=== PATIENT | female | born 2000 | race Caucasian/White ===

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

== ENCOUNTER 2021-03-19 15:27 | Emergency (ER) | payer OTHER, SELFPAY ==
[2021-03-19 15:38] VITALS: BP 107/67; PULSE 85; RESP 16; TEMP 37.4; O2SAT 99
--- NOTE | 2021-03-19 15:45 | ED.EYEPROB ---
HPI - Eye Problem General Chief complaint: Eye Problems Stated complaint: Left eye pain Time Seen by Provider: 03/19/21 15:42 Source: patient, RN notes reviewed and old records reviewed Mode of arrival: ambulatory Limitations: no limitations History of Present Illness HPI Narrative: 20 year old female who presents to [facility] care with complaints of left eye redness and some episodes of crusting noted on her left eye. Patient states that she has been on Doxycycline and Medrol dose pack for sinus infection and cough since the 07 of March with only 2 doses remaining. Patient states that for the past 2 days she has awoke with left eye red and crusted with it being almost crusted shut yesterday.Patient denies any acute visual changes to her left eye, denies any acute pain to her left eye, no fevers, chills or sweats. MD chief complaint: eye redness Related Data Home Medications Medication Instructions Recorded Confirmed doxycycline hyclate 100 mg PO BID 03/19/21 03/19/21 prednisone 10 mg PO DAILY 03/19/21 03/19/21 Allergies Allergy/AdvReac Type Severity Reaction Status Date / Time No Known Allergies Allergy Verified 03/19/21 15:45 Review of Systems Review of Systems: CONSTITUTIONAL: Denies fever, chills, or sweats. EYES: Denies visual changes, positive redness, or discharge. Left eye ENT: Denies rhinorrhea, congestion, sore throat, or otalgia. CARDIOVASCULAR: Denies chest pain, palpitations, or edema. RESPIRATORY: Denies cough or dyspnea. GASTROINTESTINAL: Denies abdominal pain, nausea, vomiting, or diarrhea. GENITOURINARY: Denies dysuria or hematuria. SKIN: Denies rash or itching. MUSCULOSKELETAL: Denies back pain, joint pain, or myalgia. NEUROLOGIC: Denies headache, numbness, or weakness. PSYCHIATRIC: Denies anxiety or depression. All systems reviewed & are unremarkable except as noted in HPI and below PMFSH Past Medical History Medical History (Updated 03/19/21 @ 16:06 by Ame Salamanca NP) History of sinus problem Migraine Surgical History Surgical History (Updated 03/19/21 @ 16:02 by Ame Salamanca NP) [place] teeth extracted Family History Family History (Updated 03/19/21 @ 17:50 by Ame Salamanca NP) Other Family history non-contributory Social History Social History (Updated 03/19/21 @ 16:03 by Ame Salamanca NP) Smoking status: Never smoker Alcohol intake: current Alcohol use details: social Living arrangements: with family Gender identity (if verbalized by the patient): Female Comments At time of signature, agree with nursing past medical, surgical, social and family history. There is no relevant family history pertinent to the presenting complaint Exam Narrative: GENERAL: Well-appearing, well-nourished, and in no acute distress. HEAD: Normocephalic, atraumatic. EYES: PERRLA and EOMI.left sclera has some patchy redness and some redness of conjunctiva no drainage noted at this time visual acuity intact with left eye 20/20 right eye 20/30 no corrective lens ENT: Nares clear, no rhinorrhea or epistaxis. Mucous membranes moist. NECK: Supple. no lymphadenopathy CHEST: Clear to auscultation. No respiratory distress.SAO2 99% on room air HEART: Regular rate and rhythm. No murmur heard. Normal peripheral pulses. ABDOMEN: Soft, nontender, nondistended, normal active bowel sounds. EXTREMITIES: Normal range of motion. No edema. SKIN: Warm, dry, no rash. NEURO: No focal deficits. Alert and oriented x3. Course Vital Signs Vital signs: Vital Signs Temperature 37.4 C 03/19/21 15:38 Pulse Rate 85 03/19/21 15:38 Respiratory Rate 16 03/19/21 15:38 Blood Pressure 107/67 03/19/21 15:38 Pulse Oximetry 99 03/19/21 15:38 Temperature 37.4 C 03/19/21 15:38 Pulse Rate 85 03/19/21 15:38 Respiratory Rate 16 03/19/21 15:38 Blood Pressure 107/67 03/19/21 15:38 Pulse Oximetry 99 03/19/21 15:38 MDM - Eye Problem Differential Diagnosi
== END 2021-03-19 16:11 | disposition home or self-care (01) ==
PROVIDERS: Emergency Provider Registered Nurse; PCP Family Medicine
DX: H10.9 Unspecified conjunctivitis (principal)
CPT/HCPCS: 99213; G0463

== ENCOUNTER 2021-08-05 10:17 | Emergency (ER) | payer OTHER, SELFPAY ==
[2021-08-05 10:32] VITALS: BP 114/67; PULSE 74; RESP 16; TEMP 36.2; O2SAT 100
--- NOTE | 2021-08-05 11:02 | ED.EYEPROB ---
HPI - Eye Problem General Chief complaint: Eye Problems Stated complaint: rt eye irritation and swellen Time Seen by Provider: 08/05/21 10:53 Source: patient and RN notes reviewed Mode of arrival: ambulatory Limitations: no limitations History of Present Illness HPI Narrative: Patient presents today complaining of redness, pain, and swelling to the right lower eyelid since yesterday, significantly worse when she woke up this morning. She currently rates her pain 4/10 and applied warm compresses x4 yesterday. She does wear contacts normally. Denies vision changes or drainage. MD chief complaint: eye pain Related Data Allergies Allergy/AdvReac Type Severity Reaction Status Date / Time No Known Allergies Allergy Verified 08/05/21 10:39 Review of Systems Review of Systems: CONSTITUTIONAL: Denies body aches, fever, chills, or sweats. EYES: Denies visual changes, redness, or discharge.+ Swelling, redness, and pain to the right lower eyelid ENT: Denies rhinorrhea, congestion, sore throat, or otalgia. CARDIOVASCULAR: Denies chest pain, palpitations, or edema. RESPIRATORY: Denies cough or dyspnea. GASTROINTESTINAL: Denies abdominal pain, nausea, vomiting, or diarrhea. GENITOURINARY: Denies dysuria or hematuria. SKIN: Denies rash, itching, or wounds. MUSCULOSKELETAL: Denies back pain, joint pain, or myalgia. NEUROLOGIC: Denies headache, numbness, tingling, or weakness. PSYCH: Denies depression or anxiety. [facility] Past Medical History Medical History History of sinus problem Migraine Surgical History Surgical History [place] teeth extracted Family History Family History Other Family history non-contributory Social History Social History Smoking status: Never smoker Alcohol intake: current Alcohol use details: social Gender identity (if verbalized by the patient): Female Comments At time of signature, I have reviewed and agree with nursing past medical, surgical, social and family history unless otherwise noted. Please see nursing chart for further information. There is no relevant family history pertinent to the presenting complaint Exam Narrative: GENERAL: Well-appearing, well-nourished, and in no acute distress. HEAD: Normocephalic, atraumatic. EYES: EOMI. PERRL. No redness or drainage. Conjunctivae normal. Small area of localized swelling and scant edema to the medial lash line of the right lower eyelid, consistent with developing stye. Mildly tender to palpation. ENT: Mucous membranes pink and moist. NECK: Normal AROM. CHEST: No respiratory distress. EXTREMITIES: Normal range of motion. No edema. SKIN: Warm, dry, no rash. Capillary refill normal. Normal skin turgor. NEURO: No focal deficits. Alert and oriented x3. Gait steady. PSYCH: Normal affect. No signs of depression or anxiety. Course Course Level of Care: Express Care Visit Vital Signs Vital signs: Vital Signs Temperature 97.2 F L 08/05/21 10:32 Pulse Rate 74 08/05/21 10:32 Respiratory Rate 16 08/05/21 10:32 Blood Pressure 114/67 08/05/21 10:32 Pulse Oximetry 100 08/05/21 10:32 Temperature 97.2 F L 08/05/21 10:32 Pulse Rate 74 08/05/21 10:32 Respiratory Rate 16 08/05/21 10:32 Blood Pressure 114/67 08/05/21 10:32 Pulse Oximetry 100 08/05/21 10:32 Reviewed MDM - Eye Problem Differential Diagnosis Differential diagnosis: Likely conjunctivitis, periorbital cellulitis and other (Stye) Critical Care Time Critical Care Time Critical Care Time: No Discharge Plan Discharge Clinical Impression: External hordeolum Qualifiers: Laterality: right Eyelid: lower Qualified Code(s): H00.012 - Hordeolum externum right lower eyelid Patient Disposition: Home,
== END 2021-08-05 11:08 | disposition home or self-care (01) ==
PROVIDERS: Emergency Provider Nurse Practitioner; PCP Family Medicine
DX: H00.012 Hordeolum externum right lower eyelid (principal)
CPT/HCPCS: 99213; G0463

== ENCOUNTER 2021-10-12 15:13 | Emergency (ER) | payer OTHER, SELFPAY ==
[2021-10-12 15:20] VITALS: BP 118/67; PULSE 60; RESP 16; TEMP 36.6; O2SAT 100
--- NOTE | 2021-10-12 15:54 | ED.URI ---
HPI - URI/Sore Throat General Chief Complaint: Upper Respiratory Infection Stated Complaint: Cough,Congestion Time Seen by Provider: 10/12/21 15:30 Source: patient Mode of arrival: ambulatory Limitations: no limitations History of Present Illness HPI Narrative: 21-year-old female presents with complaint of cough for 5 days. Reports she had nasal congestion for 2 days but that has resolved. Reports a lot of postnasal drainage, tickling in throat. Yesterday she began feeling short of breath with exertion. Afebrile. No concern for COVID. Denies chest pain. No respiratory distress, able to speak in full sentences. All systems reviewed and negative except as noted above. Related Data Allergies Allergy/AdvReac Type Severity Reaction Status Date / Time No Known Allergies Allergy Verified 10/12/21 15:16 Review of Systems Review of Systems: CONSTITUTIONAL: Denies fever, chills, or sweats. EYES: Denies visual changes, redness, or discharge. ENT: Denies rhinorrhea, congestion, sore throat, or otalgia. CARDIOVASCULAR: Denies chest pain, palpitations, or edema. RESPIRATORY: Reports cough and dyspnea with exertion. GASTROINTESTINAL: Denies abdominal pain, nausea, vomiting, or diarrhea. GENITOURINARY: Denies dysuria or hematuria. SKIN: Denies rash or itching. MUSCULOSKELETAL: Denies back pain, joint pain, or myalgia. NEUROLOGIC: Denies headache, numbness, or weakness. PSYCHIATRIC: Denies anxiety or depression. All other systems reviewed are negative, except as documented in HPI. [facility] Past Medical History Medical History History of sinus problem Migraine Surgical History Surgical History [place] teeth extracted Family History Family History Other Family history non-contributory Social History Social History Smoking status: Never smoker Alcohol intake: current Alcohol use details: social Gender identity (if verbalized by the patient): Female Comments At time of signature, agree with nursing past medical, surgical, social and family history. There is no relevant family history pertinent to the presenting complaint. Exam Narrative: GENERAL: This is a well-nourished, well-developed patient, in no apparent distress. HEAD: normocephalic, atraumatic. EYES: PERRL. Sclera clear/white. Vision is grossly intact. EARS: External ears normal, auditory canals clear and without drainage, TMs normal without perforation. Hearing grossly intact. NOSE: External nose normal with no obvious nasal discharge, nares without redness, no rhinorrhea. THROAT: Mucous membranes moist, posterior pharynx clear. NECK: Neck supple, non-tender without lymphadenopathy, masses or thyromegaly. CARDIOVASCULAR: Regular rate and rhythm without murmurs, gallops, or rubs. RESPIRATORY: Decreased lung sounds to lower lobes. Breath sounds equal bilaterally. No wheezes, rales, or rhonchi. SKIN: warm, Dry, intact with no suspicious lesions or rash, good texture and turgor. NEURO: awake, alert, and oriented to person, place and time. There were no obvious focal neurologic abnormalities. EXTREMITIES: Normal range of motion to all extremities. Course Course Level of Care: Express Care Visit Vital Signs Vital signs: Vital Signs Temperature 36.6 C 10/12/21 15:20 Pulse Rate 60 10/12/21 15:20 Respiratory Rate 16 10/12/21 15:20 Blood Pressure 118/67 10/12/21 15:20 Pulse Oximetry 100 10/12/21 15:20 Temperature 36.6 C 10/12/21 15:20 Pulse Rate 60 10/12/21 15:20 Respiratory Rate 16 10/12/21 15:20 Blood Pressure 118/67 10/12/21 15:20 Pulse Oximetry 100 10/12/21 15:20 Reviewed MDM - URI/Sore Throat MDM Narrative Medical decision making narrative: Patient is aware of diagnosis,
== END 2021-10-12 15:54 | disposition home or self-care (01) ==
PROVIDERS: Emergency Provider Nurse Practitioner Family; PCP Family Medicine
DX: J06.9 Acute upper respiratory infection, unspecified (principal)
CPT/HCPCS: 87804; 99213; G0463

== ENCOUNTER 2021-11-18 11:35 | Emergency (ER) | payer OTHER, SELFPAY ==
[2021-11-18 11:44] VITALS: BP 105/55; PULSE 71; RESP 18; TEMP 36.4; O2SAT 100
--- NOTE | 2021-11-18 12:00 | ED.GENADULT ---
HPI - General Adult General Stated complaint: Syncope episode and hit head Time Seen by Provider: 11/18/21 12:30 Source: patient and family Mode of arrival: ambulatory Limitations: no limitations History of Present Illness HPI narrative: 21-year-old female presents with concern for evaluation after syncopal episode and head injury. She reports yesterday while standing in the shade her vision went black and she passed out. Reports she hit the left side of her head on concrete. She reports she was evaluated by EMS on the scene and was told by them to follow-up with her doctor. She reports she has had mild occasional achiness to the left side of the head where she concrete. She denies any open skin, bleeding. She denies headache or vomiting. She reports history of 2 syncopal episodes when she was in high school. Reports both times she was evaluated by her doctor. She denies any current or history of chest pain, shortness of breath. MD complaint: Head injury Related Data Home Medications Medication Instructions Recorded Confirmed No Home Medications 11/18/21 11/18/21 Allergies Allergy/AdvReac Type Severity Reaction Status Date / Time No Known Allergies Allergy Verified 11/18/21 12:36 Review of Systems Review of Systems: CONSTITUTIONAL: Denies malaise, chills, sweats, or fever. EYES: Denies visual changes, redness, or discharge. ENT: Denies rhinorrhea, congestion, sinus pain, otalgia or sore throat. CARDIOVASCULAR: Denies chest pain, palpitations, or edema. RESPIRATORY: Denies cough or dyspnea. GASTROINTESTINAL: Denies abdominal pain, nausea, vomiting SKIN: Denies abrasions, lacerations MUSCULOSKELETAL: Denies musculoskeletal pain NEUROLOGIC: Denies numbness, weakness, or headache. All systems reviewed & are unremarkable except as noted in HPI and below PMFSH Past Medical History Medical History History of sinus problem Migraine Surgical History Surgical History [place] teeth extracted Family History Family History Other Family history non-contributory Social History Social History Smoking status: Never smoker Alcohol intake: current Alcohol use details: social Gender identity (if verbalized by the patient): Female Comments At time of signature, agree with nursing past medical, surgical, social and family history. There is no relevant family history pertinent to the presenting complaint Exam Narrative: GENERAL: Well-appearing, well-nourished, and in no acute distress. HEAD: Normocephalic, atraumatic. EYES: PERRLA, sclera clear, and EOMI. No nystagmus. ENT: Nares clear, turbinates pink, no rhinorrhea or epistaxis. Mucous membranes moist. TM pearly talbert with sharp light reflex bilaterally; no tragal tenderness. NECK: Supple. No lymphadenopathy. CHEST: No respiratory distress. Clear to auscultation. No bony deformities, no asymmetry. Speaks in full sentences. HEART: Regular rate and rhythm. No murmur heard. Normal peripheral pulses. EXTREMITIES: Grossly normal range of motion. No edema. Grossly normal strength and sensation. SKIN: Warm, dry, no visible rash. NEURO: Alert and oriented x3. No focal deficits. Cranial nerves II through XII grossly intact PSYCH: Normal mood and affect Course Course Emergency Course: Discussed with patient and her mother limited diagnostic capability [facility]. Discussed negative exam findings. Gave patient reasons to follow-up in emergency room, advised to make an appoint with her primary care doctor. Offered EKG, patient declined. Patient is aware of diagnosis, understands and agrees to treatment plan. Anticipatory guidance given. Patient agrees to follow-up as directed and is aware of reasons to seek care at the [facility]
== END 2021-11-18 12:51 | disposition home or self-care (01) ==
PROVIDERS: Emergency Provider Nurse Practitioner; PCP Family Medicine
DX: S09.90XA Unspecified injury of head, initial encounter (principal); W19.XXXA Unspecified fall, initial encounter; R55 Syncope and collapse
CPT/HCPCS: 99213; G0463

== ENCOUNTER 2025-02-06 16:16 | Emergency (ER) | payer MEDICAID, SELFPAY ==
[2025-02-06 16:27] VITALS: BP 118/63; PULSE 86; RESP 18; TEMP 36.6; O2SAT 100
--- OUTSIDE RECORDS SUMMARY | 2025-02-06 16:31 | XMS_ITS | Clinical Summary ---
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 Gender Identity Not on file Sexual Orientation Not on file Plan of Treatment Health Maintenance Due Date Last Done Comments Hepatitis C Virus (HCV) Screening 2000 Human Papillomavirus (HPV) Immunization (3 - 2-dose series) 05/27/2010 03/04/2010, 12/30/2009, 10/28/2009 SARS-COV-2 Immunization ( season) 2024 Influenza Immunization (#1) 02/19/202501/2017, 07/17/2015, 07/14/2011, Additional history exists Respiratory Syncytial Virus (RSV) Immunization (Adult) (1 - 1-dose 75+ series) 2075 Pneumococcal Immunization Combined Aged Out 2000, 2000 No longer eligibl e based on patient's age to complete this topic Hepatitis B Immunization Completed 002, 04/08/2001, 2000 DTaP/Tdap/Td Immunization Discontinued 2011, 03/31/2006, 05/11/2002, Additional history exists TdaP Immunization Completed 12/02/2011 Meningococcal Immunization (ACWY) Completed 02/05/2017, 12/02/2011, 12/01/2001 Rotavirus Immunization Aged Out No lo nger eligible based on patient's age to complete this topic Insurance [employer] on file
--- OUTSIDE RECORDS SUMMARY | 2025-02-06 16:32 | XMS_ITS | Clinical Summary ---
Author Organization [facility] Address [address] [place] [address] Care Team Providers Care Fiber Technician Name Role Phone Sundeep Miranda MD Primary Care Provider [phone] Source Comments [facility],non-owned Affiliates and Associated Physician Practices is amultiple site organization consisting of ambulatory clinics and hospital sitesin [place], [place], [place] and [place]. This disclosure is being madepursuant to the Care Everywhere program and may not contain all information available regarding this patient. Last updated 18.[facility] Allergies No known active allergies Medications * Be aware that medications may not be up to date on this document. Alwaysverify current medications with the patient. MedroxyPROGESTERon e Acetate (DEPO-PROVERA IM) Ac tive Family History Medical History Relation Name Comments Arrhythmia Neg Hx CVA<55(male) Neg Hx CVA<65(female) Neg Hx Cardiomyopathy Neg Hx Congenital Heart defect Neg Hx Heart Surgery Neg Hx Long QT Syndrome Neg Hx NV<55(male) Neg Hx NV<65(female) Neg Hx Marfan Syndrome Neg Hx Pacemaker Neg Hx Sudd. <30 Neg Hx Social History Tobacco Use Types Packs/Day Years Used Date Smoking Tobacco: Never Alcohol Use Standard Drinks/Week Comments Not Asked 0 (1 standard drink = 0.6 oz pur e alcohol) Comments Unknown Sex and Gender Information Value Date Recorded Sex Assigned at Not on file Legal Sex Female 2:01 PM CDT Gender Identity Not on file Sexual Orientation Not on file Last Filed Vital Signs Vital Sign Reading Time Taken Comments Blood Pressure 104/62 12/19/2015 11:29 AM CDT Pulse 72 12/19/2015 11:29 AM CDT Temperature - - Respiratory Rate 16 12/19/2015 11:29 AM CDT Oxygen Saturation 99% 12/19/2015 11:29 AM CDT Inhaled Oxygen Concentration - - Weight 52.4 kg (115 lb 8.3 oz) 12/19/2015 11:29 AM CDT Height 165 cm (5' 4.96) 12/19/2015 11:29 AM CDT Body Mass Index 19.25 12/19/2015 11:29 AM CDT Plan of Treatment Health Maintenance Due Date Last Done Comments HIV SCREENING 2015 HPV VACCINE (1 - 3-dose series) 2015 CHLAMYDIA/GONORRHEA SCREENING 2016 HEPATITIS C SCREENING 07/21/2018 DTAP/TDAP/TD VACCINES (1 - Tdap) 2019 HEPATITIS B VACCINE (1 of 3 - 19+ 3-dose series) 2019 COVID-19 VACCINE (1 - 2023-2 5 season) 2024 DEPRESSION SCREENING 06/21/2024 INFLUENZA VACCINE (#1) 2025 ZOSTER VACCINE (1 of 2) 2050 HIB VACCINE Aged Out No longer eligi ble based on patient's age to complete this topic MENINGOCOCCAL (Group B) VACC INE SHARED DECISION-MAKING Aged Out No longer eligibl e based on patient's age to complete this topic MENINGOCOCCAL GROUPS A/C/Y/W VACCINE Aged Out No longer eligible b ased on patient's age to complete this topic PNEUMOCOCCAL VACCINE Aged Out No long er eligible based on patient's age to complete this topic Insurance [employer] Care Teams Fiber Technician Relationship Specialty Start Date End Date Sundeep Miranda MD PCP - General Emergency Medicine 12/13/15
[2025-02-06 16:34] LABS: EDSTREPNEGPOS1 Negative (Negative)
--- NOTE | 2025-02-06 16:58 | ED_ITS ---
HPI - URI/Sore Throat General Chief Complaint: Upper Respiratory Infection Stated Complaint: sore throat / cold like Time Seen by Provider: 02/06/25 16:45 Source: patient and RN notes reviewed Mode of arrival: ambulatory Limitations: no limitations History of Present Illness HPI Narrative: 24-year-old female presents Express Care complaining of upper respiratory symptoms for approximately 4 days. Patient reports congestion, runny nose, sore throat, dry cough, and ear fullness. Patient denies any fevers, body aches, chills, nausea, vomiting, diarrhea, chest pain, shortness of breath, or any other symptoms. Patient is 6 weeks . Patient has been taking Tylenol and using RT without relief. This is patient's 1st . Patient is not follow-up with OBGYN yet but as the scheduled appointment coming up. Related Data Home Medications ?Medication ?Instructions ?Recorded ?Confirmed ?Last Taken ?Type No Home Medications 11/18/21 11/18/21 U nknown History Allergies Allergy/AdvReac Type Severity Reaction Status Date / Time No Known Allergies Allergy Verified 02/06/25 16:29 Review of Systems Review of Systems: CONSTITUTIONAL: Denies fever, chills, body aches, or sweats. EYES: Denies visual changes, redness, or discharge. ENT: Positive for rhinorrhea, congestion, sore throat, and ear fullness. Negative for otalgia. CARDIOVASCULAR: Denies chest pain, palpitations, or edema. RESPIRATORY: Positive for cough. Negative for dyspnea. GASTROINTESTINAL: Denies abdominal pain, nausea, vomiting, or diarrhea. GENITOURINARY: Denies dysuria or hematuria. SKIN: Denies rash or itching. MUSCULOSKELETAL: Denies back pain, joint pain, or myalgia. NEUROLOGIC: Denies headache, numbness, or weakness. PSYCHIATRIC: Denies anxiety or depression. All other systems reviewed are negative, except as documented in HPI. [facility] Past Medical History Medical History Migraine History of sinus problem Surgical History Surgical History [place] teeth extracted Family History Family History Other Family history non-contributory Social History Social History Smoking status: Never smoker Alcohol intake: current Alcohol use details: social Living arrangements: with family Gender identity (if verbalized by the patient): Female Comments At the time of my signature, I reviewed and agree with the nursing past medical, surgical, social, and family history. There is no relevant family history pertinent to the patient complaint. Exam Narrative: GENERAL: This is a well-nourished, well-developed adult, in no apparent distress. They are non ill-appearing, nontoxic appearing. HEAD: normocephalic, atraumatic. EYES: Sclera clear/white. Vision is grossly intact. Conjunctiva normal bilaterally. Extraocular movements intact. EARS: External ears normal, auditory canals clear and without drainage, TMs without erythema or perforation. Hearing grossly intact. NOSE: External nose normal with no obvious nasal discharge, nasal turbinates erythematous, no rhinorrhea. THROAT: Mucous membranes moist, posterior pharynx erythematous without exudate. Uvula is midline. Postnasal drip present. NECK: Neck supple, non-tender without lymphadenopathy, masses or thyromegaly. CARDIOVASCULAR: Regular rate and rhythm without murmurs, gallops, or rubs. RESPIRATORY: Clear to auscultation. Breath sounds equal bilaterally. No wheezes, rales, or rhonchi. SKIN: warm, Dry, intact with no suspicious lesions or rash, good texture and turgor. NEURO: awake, alert, and oriented to person, place and time. There were no obvious focal neurologic abnormalities. EXTREMITIES: No joint tenderness, effusion, or edema noted. BACK: Nontender without deformity. Course Course Emergency Course: Portions of this record may have been created with voice recognition software Level of Care: Express Care Visit Vital Signs Vital signs: Vital Signs Temperature 97.9 F 02/06/25 16:27 Pulse Rate 86 02/06/25 16:27 Respiratory Rate 18 02/06/25 16:27 Blood Pressure 118/63 02/06/25 16:27 Pulse Oximetry 100 02/06/25 16:27 Oxygen Delivery Room Air 02/06/25 16:27 Temperature 97.9 F 02/06/25 16:27 Pulse Rate 86 02/06/25 16:27 Respiratory Rate 18 02/06/25 16:27 Blood Pressure 118/63 02/06/25 16:27 Pulse Oximetry 100 02/06/25 16:27 Oxygen Delivery Room Air 02/06/25 16:27 MDM - URI/Sore Throat MDM Narrative Medical decision making narrative: Rapid COVID, flu, strep were negative. A throat culture is pending. Symptoms likely viral in etiology. Discussed physical exam findings. Advised supportive measures and signs/symptoms to go to the ER. Pt is appropriate for outpt treatment and f/u. Differential Diagnosis Differential diagnosis: Likely upper respiratory infection, sinusitis, viral infection and pharyngitis Lab Data Attestation: I reviewed the patient's lab results. Labs: Lab Results 02/06/25 Range/Units 16:33 POC Grp A Strep Screen Negative (Negative) Discharge Plan Discharge Clinical Impression: Upper respiratory infection Qualifiers: URI type: unspecified viral URI Qualified Code(s): J06.9 - Acute upper respiratory infection, unspecified Patient Disposition: Home Condition: Stable Instructions: Upper Respiratory Infection (ED) Additional Instructions: Your rapid strep swab, COVID, and flu was negative today at [facility]. You will be notified in a few days if the culture comes back positive for strep, and appropriate antibiotics will be called in for you at that time. Your symptoms are likely due to a viral illness, which is not treated with antibiotics. Viral symptoms can be present for up to 7-14 days. Take Tylenol for fever or pain. Follow the instructions on the bottle. Rest and stay hydrated. Follow up with your PCP in 3-5 days if symptoms are not improving. Go to the ER immediately if you develops difficulty breathing or swallowing Patient Language: Azeri Prescriptions: No Action No Home Medications Follow-up/Referrals: Ruth,Sundeep Barfield MD [Primary Care Provider] Time of Disposition: 16:57
[2025-02-06 16:59] LABS: EDCOVIDSCREEN Negative (Negative)
[2025-02-06 16:59] LABS: EDINFLUASCREEN Negative (Negative); EDINFLUBSCREEN Negative (Negative)
== END 2025-02-06 17:02 | disposition home or self-care (01) ==
PROVIDERS: PCP Family Medicine
DX: O99.511 Diseases of the respiratory system complicating pregnancy, first trimester (principal); J06.9 Acute upper respiratory infection, unspecified; Z3A.01 Less than 8 weeks gestation of pregnancy; Z20.822 Contact with and (suspected) exposure to COVID-19
CPT/HCPCS: 87081; 87426; 87804; 87880; 99213; G0463

== ENCOUNTER 2025-03-12 14:54 | Emergency (ER) | payer SELFPAY ==
[2025-03-12 14:59] VITALS: BP 114/68; PULSE 85; RESP 16; TEMP 36.5; O2SAT 100
--- NOTE | 2025-03-12 14:59 | ED.FEMALEGU ---
HPI - Female Genitourinary General Chief complaint: Urogenital-Female Stated complaint: Uti Symptoms Time Seen by Provider: 03/12/25 15:04 Source: patient, RN notes reviewed and old records reviewed Mode of arrival: ambulatory Limitations: no limitations History of Present Illness HPI Narrative: All 24-year-old female presents to the [facility] with concerns for UTI. Patient reports burning, frequency is feeling like she still has to urinate after urination. 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 Onset (ago): hour(s) Related Data Home Medications ?Medication ?Instructions ?Recorded ?Confirmed ?Last Taken ?Type BYMOUTH DAILY 03/12/25 Unknown History aspirin 81 mg tablet,delayed 81 mg PO DAILY 03/12/25 03/12/25 Unknown History release (Adult Aspirin Regimen) Allergies Allergy/AdvReac Type Severity Reaction Status Date / Time No Known Allergies Allergy Verified 03/12/25 15:00 Review of Systems Review of Systems: All systems reviewed & are unremarkable except as noted in HPI and below Constitutional: Constitutional: Reports no additional constitutional complaints ENT: Reports system reviewed and no additional complaints, except as documented Cardiovascular: Cardiovascular: Reports no additional cardiovascular complaints, Denies chest pain and Denies dyspnea Respiratory: Respiratory: Reports no additional respiratory complaints, Denies chest congestion, Denies cough and Denies dyspnea Gastrointestinal: Gastrointestinal: Reports as per HPI Genitourinary: Genitourinary: Reports as per HPI Musculoskeletal: Musculoskeletal: Reports no additional musculoskeletal complaints Integumentary/Breasts: Skin/Breast: Reports system reviewed and no additional complaints, except as docu [facility] Past Medical History Medical History Migraine History of sinus problem Surgical History Surgical History [place] teeth extracted Family History Family History Other Family history non-contributory Social History Social History Smoking status: Never smoker Alcohol intake: current Alcohol use details: social Living arrangements: with family Gender identity (if verbalized by the patient): Female Comments At the time of my signature, I reviewed and agree with the nursing past medical, surgical, social, and family history. There is no relevant family history pertinent to the patient complaint. Exam Const: General: cooperative, healthy appearing, comfortable, no acute distress, well developed, alert and well nourished Nutritional Appearance: well nourished Orientation/consciousness: patient oriented x3 Limitations: no limitations HENMT: Head: normal to inspection Mouth: Yes Normal oral and palatal mucosa present, Yes lip normal, Yes tongue normal and Yes moist mucous membranes Eyes: General: appearance normal, both eyes and all related structures Alignment and Position: alignment normal Neck: Neck: normal visual inspection, full ROM, no lymphadenopathy and no meningeal signs Chest: Chest palpation & inspection: normal inspection of the chest Resp: Effort & Inspection: normal respiratory effort and able to speak in complete sentences Auscultation: clear to auscultation bilaterally, no crackles, no rales, no rhonchi and no wheezes Cardio: Rate: regular rate GI: GI Palp: No abdominal tenderness, Yes Soft to palpation, No Firmness to palpation present (GI) and No Guarding due to palpation present (GI) : General: Yes no CVA tenderness Skin: General skin exam: normal color and no rashes or lesions noted Neuro: General: patient oriented x3, gait normal, moves all extremities and no meningeal signs Cognition (Neuro): normal cognition Speech: normal speech Gait exam (Neuro): Normal gait present Extrem: General: normal to inspection, full ROM, capillary refill normal and normal gait Psych: Appearance: grossly normal and well kempt Mental Status: mental status grossly normal Speech and movement: Normal speech and movement present and Clear speech present Affect: normal affect Attitude: cooperative Course Course Level of Care: Express Care Visit Vital Signs Vital signs: Vital Signs Temperature 97.7 F 03/12/25 14:59 Pulse Rate 85 03/12/25 14:59 Respiratory Rate 16 03/12/25 14:59 Blood Pressure 114/68 03/12/25 14:59 Pulse Oximetry 100 03/12/25 14:59 Oxygen Delivery Room Air 03/12/25 14:59 Temperature 97.7 F 03/12/25 14:59 Pulse Rate 85 03/12/25 14:59 Respiratory Rate 16 03/12/25 14:59 Blood Pressure 114/68 03/12/25 14:59 Pulse Oximetry 100 03/12/25 14:59 Oxygen Delivery Room Air 03/12/25 14:59 Reviewed MDM - Female Genitourinary MDM Narrative Medical decision making narrative: Patient sitting in exam room. Patient is nontoxic, vitals are stable. Patient started with urinary symptoms this morning. Patient is 11 weeks . Has positive leukocytes, will treat with Macrobid Encourage patient to follow-up with primary care provider Patient is appropriate for outpatient treatment with close follow-up Discharge instructions reviewed with patient, as well as provided in writing per nursing staff. The instructions also include specific and strict return/GO TO THE ER as well as f/u information. All questions have been answered, and the patient deny any further questions with discharge and discharge plan. Some parts of this dictation were generated by voice recognition software and may contain typographical and/or grammatical inaccuracies. Differential Diagnosis Differential diagnosis: Likely urinary tract infection, bacterial vaginosis and trichomoniasis Lab Data Labs: Lab Results 03/12/25 Range/Units 15:08 POC Urine Color Yellow POC Urine Clarity Clear POC Urine pH 6.0 POC Ur Specif [place] 1.020 POC Urine Protein Negative (Negative) POC Ur Glucose (UA) Negative (Negative) POC Urine Ketones Trace (Negative) POC Urine Blood Negative (Negative) POC Urine Nitrite Negative (Negative) POC Urine Bilirubin Negative (Negative) POC Urine Urobilinogen 0.2 POC U Leukocyte Esteras 1+ (Negative) Reviewed Critical Care Time Critical Care Time Critical Care Time: No Discharge Plan Discharge Clinical Impression: Urinary tract infection Qualifiers: Urinary tract infection type: acute cystitis Hematuria presence: without hematuria Qualified Code(s): N30.00 - Acute cystitis without hematuria Patient Disposition: Home Condition: Stable Instructions: Antibiotic Form, Urinary Tract Infection in (ED) Additional Instructions: Increased water intake Take Tylenol as needed for pain Take antibiotic as prescribed Today your urine dip showed a probability of a UTI. You have been prescribed an antibiotic. Your urine will be sent to our lab for a culture. If at that time a bacteria grows that is not covered by the antibiotic prescribed you will be notified. 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
[2025-03-12 15:14] LABS: EDUAAPPEAR Clear; EDUABILI Negative (Negative); EDUABLOOD Negative (Negative); EDUACOLOR1 Yellow; EDUAGLUCOSE Negative (Negative); EDUAKETONE Trace (Negative); EDUALEUKO 1+ (Negative); EDUANITRATE Negative (Negative); EDUAPH 6.0; EDUAPROTEIN Negative (Negative); EDUASPGRAVITY 1.020; EDUAUROBILI 0.2
== END 2025-03-12 15:23 | disposition home or self-care (01) ==
PROVIDERS: Emergency Provider Nurse Practitioner; PCP Family Medicine
DX: O23.11 Infections of bladder in pregnancy, first trimester (principal); N30.00 Acute cystitis without hematuria; Z3A.11 11 weeks gestation of pregnancy; Z79.82 Long term (current) use of aspirin
CPT/HCPCS: 81003; 87086; 99213; G0463